=== PATIENT | male | born 1995 | race Caucasian/White ===

== ENCOUNTER 2017-09-10 22:10 | Emergency (ER) | payer SELFPAY ==
[2017-09-10 23:04] VITALS: BMI 25.8
[2017-09-10] MEDS ORDERED: Lactated Ringer's 1,000 ML IV SCH (23:30)
[2017-09-10] MEDS: Albuterol-Ipratrop 3 mg / 0.5 (3 ml) UD IH SCH (23:52)
--- NOTE | 2017-09-11 | ED PDOC ---
Arrival/HPI - General Historian: Patient - History of Present Illness Time/Duration: Prior to Arrival Symptom Onset: Sudden Symptom Course: Unchanged Activities at Onset: Rest Context: Home <Armando Merino - Last Filed: 09/11/17 03:36> <Ck Barrow - Last Filed: 09/11/17 03:49> - General Chief Complaint: Fever Time Seen by Provider: 09/10/17 22:16 - History of Present Illness Narrative History of Present Illness (Text): 09/10/17 23:53 Patient is a 21 M with history of asthma presenting with complaints of fever 103 F, non bloody vomiting, nausea, and general malaise which began this morning. Patient states he did have some RLQ discomfort which began yesterday but he did not pay much attention to it. States he then woke up vomiting this morning and not feeling well. Last meal was [employer] last night. Patient recently came from [place] 3 weeks prior. Denies chills, shortness of breath, diarrhea, constipation, urinary changes, chest pain. PMD: denies Past medical history: asthma Medications: uses ventolin he gets from his emergency department visits Surgical history: denies Allergies: NKDA Social history: 10 cigarettes a day, denies alcohol or drug abuse (Armando Merino) Past Medical History - Provider Review Nursing Documentation Reviewed: Yes - Infectious Disease Hx of Infectious Diseases: None - Tetanus Immunization Tetanus Immunization: Unknown - Past Medical History Past Medical History: No Previous - Cardiac Hx Cardiac Disorders: No - Pulmonary Hx Asthma: Yes - Neurological Hx Neurological Disorder: No - HEENT Hx HEENT Disorder: No - Renal Hx Renal Disorder: No - Endocrine/Metabolic Hx Endocrine Disorders: No - Hematological/Oncological Hx Blood Disorders: No - Integumentary Hx Dermatological Disorder: No - Musculoskeletal/Rheumatological Hx Musculoskeletal Disorders: No - Gastrointestinal Hx Gastrointestinal Disorders: No - Genitourinary/Gynecological Hx Genitourinary Disorders: No - Psychiatric Hx Psychophysiologic Disorder: No Hx Substance Use: No - Past Surgical History Past Surgical History: No Previous - Anesthesia Hx Anesthesia: No Hx Anesthesia Reactions: No - Suicidal Assessment Feels Threatened In Home Enviroment: No <Armando Merino - Last Filed: 09/11/17 03:36> Family/Social History - Physician Review Nursing Documentation Reviewed: Yes Family/Social History: Other Smoking Status: Current Some Days Smoker Hx Alcohol Use: No Hx Substance Use: No Hx Substance Use Treatment: No <Armando Merino - Last Filed: 09/11/17 03:36> Allergies/Home Meds <Armando Merino - Last Filed: 09/11/17 03:36> <Ck Barrow Bobbi - Last Filed: 09/11/17 03:49> Allergies/Adverse Reactions: Allergies No Known Allergies Allergy (Verified 09/10/17 23:01) Review of Systems - Physician Review All systems were reviewed & negative as marked: Yes - Review of Systems Constitutional: Normal Eyes: Normal Respiratory: Normal, Cough. absent: SOB Cardiovascular: absent: Chest Pain, Palpitations Gastrointestinal: Abdominal Pain (right lower quadrant), Nausea, Vomiting. absent: Constipation, Diarrhea Genitourinary Male: absent: Dysuria Neurological: Headache, Dizziness Endocrine: Normal Hemo/Lymphatic: Normal Psychiatric: Normal <Armando Merino - Last Filed: 09/11/17 03:36> Physical Exam Vital Signs Reviewed: Yes Temperature: Afebrile Blood Pressure: Normal Pulse: Regular Respiratory Rate: Normal Appearance: Positive for: Well-Appearing, Non-Toxic, Comfortable Pain Distress: None Mental Status: Positive for: Alert and Oriented X 3 - Systems Exam Head: Present: Atraumatic, Normocephalic Pupils: Present: PERRL Extroacular Muscles: Present: EOMI Conjunctiva: Present: Normal Mouth: Present: Moist Mucous Membranes Respiratory/Chest: Present: Clear to Auscultation. No: Wheezes, Rhonchi Cardiovascular: Present: Regular Rate and Rhythm, Normal S1, S2 Abdomen: Present: Tenderness (left lower quadrant). No: Normal Bowel Sounds Upper Extremity: Present: Normal Inspection. No: Edema Lower Extremity: Present: Normal Inspection. No: Edema Neurological: Present: GCS=15, CN II-XII Intact, Speech Normal Skin: Present: Warm, Normal Color Psychiatric: Present: Alert, Oriented x 3, Normal Insight, Normal Concentration <Armando Merino - Last Filed: 09/11/17 03:36> Vital Signs Temp Pulse Resp BP Pulse Ox 09/11/17 03:21 98.9 F 83 18 101/69 98 09/11/17 01:07 99.6 F 112 H 22 132/68 99 09/10/17 23:12 102.1 F H 108 H 22 135/78 97 Medical Decision Making Re-evaluation Time: 01:20 (abdominal pain resolved) Reassessment Condition: Re-examined, Improved - Lab Interpretations I have reviewed the lab results: Yes Interpretation: No clinic. lab abnormalty - RAD Interpretation Agricultural Research Director: Radiologist <Armando Merino - Last Filed: 09/11/17 03:36> <Ck Barrow - Last Filed: 09/11/17 03:49> ED Course and Treatment: 09/11/17 01:24 Appendicitis vs. Viral colitis vs. Pneumonia CBC, BMP, CT abdomen/pelvis w IV contrast, CXR, Zofran, LR 09/11/17 02:11 CT abdomen/pelvis: 1. Findings consistent with enteritis involving small bowel segments of the lower abdomen and pelvis and primarily involved ileum. 2. Question of minimal nonspecific left colitis. 3. Otherwise negative CT abdomen/pelvis. A normal appendix is seen. CXR- no acute disease process, official read pending Patient states that his abdominal pain has improved. With improvement of symptoms and findings on CT abdomen, will discharge patient with motrin and zofran, and instruct to continue with supportive care (Armando Merino) Patient Seen With Resident: In agreement with resident note, which includes further HPI details. Patient was seen and evaluated with resident, came up with plan and treatment together. 21 year old male presents complaining of fever of 103F associated with vomiting , nausea, generalize malaise that began this morning. Plan: -- Abdmmen & Pelvis CT -- CXR Two views -- Tylenol, IV Fluids, Zofran Inj -- Blood Culture -- Urinalysis Patient was hydrated well in the ED. He was able to tolerate PO fluids. CXR was negative for PNA. Abdominal CT showed enteritis. No diarrhea. Will advise supportive care with motrin prn fever and zofran prn nausea. If symptoms worsen then patient should return to the ED. Patient should also f/u with PMD in 1- 2days. (Ck Barrow) - Lab Interpretations Lab Results: 09/10/17 23:50 09/10/17 23:50 Lab Results 09/10/17 23:50: Sodium 139, Potassium 4.1, Chloride 102, Carbon Dioxide 24, Anion Gap 17, BUN 10, Creatinine 0.9, Est GFR ( Amer) > 60, Est GFR (Non- Af Amer) > 60, Random Glucose 97, Calcium 9.2, Total Bilirubin 0.6, AST 38, ALT 72 H, Alkaline Phosphatase 85, Total Protein 8.2, Albumin 4.6, Globulin 3.5, Albumin/Globulin Ratio 1.3 09/10/17 23:50: WBC 7.8 D, RBC 5.49, Hgb 17.1, Hct 48.0, MCV 87.4, MCH 31.1, MCHC 35.6, RDW 12.8, Plt Count 166, MPV 10.2, Gran % 88.9 H, Lymph % (Auto) 6.1 L, [place] % (Auto) 4.6, Eos % (Auto) 0.3 L, Baso % (Auto) 0.1, Gran # 6.94 H, Lymph # (Auto) 0.5 L, [place] # (Auto) 0.4, Eos # (Auto) 0.0, Baso # (Auto) 0.01 - RAD Interpretation Radiology Orders: 09/10/17 23:28 ABDOMEN & PELVIS [ABD & PELVIS IV CONTRAST ONLY] [CT] Stat 09/11/17 01:10 CHEST TWO VIEWS (PA/LAT) [RAD] Stat - Medication Orders Current Medication Orders: Discontinued Medications Acetaminophen (Tylenol 325mg Tab) 650 mg PO STAT STA Stop: 09/10/17 23:48 Last Admin: 09/11/17 00:36 Dose: 650 mg MAR Pain/Vitals Document 09/11/17 00:36 POLY (Rec: 09/11/17 00:36 POL[id number] Pain Reassessment Is This A Pain ReAssessment? No Sleep Is patient sleeping during reassessment? No Albuterol/Ipratropium (Duoneb 3 Mg/0.5 Mg (3 Ml) Ud) 3 ml IH Q15M [facility] Stop: 09/11/17 00:01 Last Admin: 09/11/17 00:16 Dose: 3 ml Lactated Ringer's (Lactated Ringer's) 1,000 mls @ 125 mls/hr IV .Q8H [facility] Last Admin: 09/10/17 23:52 Dose: 125 mls/hr eMAR Start Stop Document 09/10/17 23:52 POLY (Rec: 09/10/17 23:53 [id number] Intravenous Solution Start Date 09/10/17 Start Time 23:53 End Date 09/10/17 Ondansetron HCl (Zofran Inj) 4 mg IVP STAT STA Stop: 09/10/17 23:28 Last Admin: 09/10/17 23:53 Dose: 4 mg IVP Administration Document 09/10/17 23:53 POLY (Rec: 09/10/17 23:53 [id number] Charges for Administration # of IVP Administrations 1 <Armando Merino - Last Filed: 09/11/17 03:36> - Scribe Statement The provider has reviewed the documentation as recorded by the Scribe <Ck Barrow - Last Filed: 09/11/17 03:49> - Scribe Statement Jhony Arreaga Provider Scribe Attestation: All medical record entries made by the Scribe were at my direction and personally dictated by me. I have reviewed the chart and agree that the record accurately reflects my personal performance of the history, physical exam, medical decision making, and the department course for this patient. I have also personally directed, reviewed, and agree with the discharge instructions and disposition. (Ck Barrow) Disposition/Present on Arrival - Present on Arrival Any Indicators Present on Arrival: No History of DVT/PE: No History of Uncontrolled Diabetes: No Urinary Catheter: No History of Decub. Ulcer: No History Surgical Site Infection Following: None - Disposition Have Diagnosis and Disposition been Completed?: Yes Disposition Time: 02:41 Patient Plan: Discharge <Armando Merino - Last Filed: 09/11/17 03:36> <Ck Barrow - Last Filed: 09/11/17 03:49> - Disposition Diagnosis: Enteritis Disposition: HOME/ ROUTINE Condition: GOOD Discharge Instructions (ExitCare): Viral Gastroenteritis, Adult (DC) Additional Instructions: Mr. Nunez, thank you for letting us take care of you today. Your provider was Dr. Barrow. The emergency medical care you received today was directed at your acute symptoms. If you were prescribed any medication, please fill it and take as directed. It may take several days for your symptoms to resolve. Return to the Emergency Department if your symptoms worsen, do not improve, or if you have any other problems. Please contact your doctor or call one of the physicians/clinics you have been referred to that are listed on the Patient Visit Information form that is included in your discharge packet. Bring any paperwork you were given at discharge with you along with any medications you are taking to your follow up visit. Our treatment cannot replace ongoing medical care by a primary care provider (PCP) outside of the emergency department. Thank you for allowing the [facility] team to be part of your care today. Please follow up with Dr. Agustin as discussed for further follow up regarding this Emergency department visit. If you had an X-Ray or CT scan: A Radiologist will review the ED reading if any change in treatment is needed we will contact you. If you had a blood, urine, or wound culture: It will take several days for the results, if any change in treatment is needed we will contact you. If you had an STI test: It will take 48 hours for the results. Please call after 1 week if you have not heard back. Prescriptions: Ibuprofen [Motrin] 600 mg PO Q6 #28 tab Ondansetron HCl [Zofran] 4 mg PO Q6 #20 tablet Referrals: HARRIETT SEVILLA [Primary Care Provider] - Follow up with primary Brittni Agustin MD [Staff Provider] - Follow up with primary Forms: [employer] ([place]ian)
[2017-09-11] MEDS: Albuterol-Ipratrop 3 mg / 0.5 (3 ml) UD IH SCH (00:16)
[2017-09-11 00:17] LABS: BASO # 0.01 K/mm3 (0.0-2.0); BASO % 0.1 % (0.0-3.0); EOS % 0.3 % (1.5-5.0); GRAN # 6.94 (1.4-6.5); GRAN % 88.9 % (50.0-68.0); HEMOGLOBIN 17.1 g/dL (14.0-18.0); LYMPH # 0.5 (1.2-3.4); LYMPH % 6.1 % (22.0-35.0); MEAN CELL VOLUME 87.4 fl (80.0-105.0); MEAN CORPUSCULAR HEMOGLOBIN 31.1 pg (25.0-35.0); MEAN CORPUSCULAR HGB CONC 35.6 g/dl (31.0-37.0); MEAN PLATELET VOLUME 10.2 fl (7.0-11.0); MONO # 0.4 (0.1-0.6); MONO % 4.6 % (1.0-6.0); RBC 5.49 10^6/uL (3.5-6.1); RED CELL DISTRIBUTION WIDTH 12.8 % (11.5-14.5)
[2017-09-11 00:29] LABS: ALB/GLOB RATIO 1.3 (1.1-1.8); ALBUMIN 4.6 g/dL (3.0-4.8); ALT/SGPT 72 U/L (7-56); AST/SGOT 38 U/L (17-59); BLOOD UREA NITROGEN 10 mg/dL (7-21); CALCIUM 9.2 mg/dL (8.4-10.5); GFR AFRICAN-AMERICAN > 60; GFR NON-AFRICAN AMERICAN > 60
[2017-09-11 00:31] LABS: WHITE BLOOD COUNT 7.8 10^3/ul (4.5-11.0)
[2017-09-11] MEDS ORDERED: Iohexol 350 MG/100 ML VIAL ONE (01:08)
[2017-09-11 03:23] VITALS: BP 101/69; PULSE 83; RESP 18; TEMP 98.9; O2SAT 98
--- NOTE | 2017-09-11 08:37 | CT ---
PROCEDURE: CT Abdomen and Pelvis with contrast HISTORY: Mcburney's point, abdominal pain, vomiting COMPARISON: None. TECHNIQUE: Contrast dose: 100 mL of Omnipaque 350 Radiation dose: Total exam DLP = 569 mGy-cm. This CT exam was performed using one or more of the following dose reduction techniques: Automated exposure control, adjustment of the mA and/or kV according to patient size, and/or use of iterative reconstruction technique. FINDINGS: LOWER THORAX: Unremarkable. LIVER: Unremarkable. No gross lesion or ductal dilatation. GALLBLADDER AND BILE DUCTS: Unremarkable. PANCREAS: Unremarkable. No gross lesion or ductal dilatation. SPLEEN: Unremarkable. ADRENALS: Unremarkable. No mass. KIDNEYS AND URETERS: Unremarkable. No hydronephrosis. No solid mass. VASCULATURE: Unremarkable. No aortic aneurysm. BOWEL: No bowel obstruction. Distal small bowel nondistended. The internal density here may reflect infolding of mucosal enhancement with a thin sub mucosal trace edema and/or induration. No abscess or gross fistula seen. The rectosigmoid colon shows nondistention and distally possible stratification an equivocal slight pericolonic induration. No gross mass seen APPENDIX: Normal appendix. PERITONEUM: Unremarkable. No free fluid. No free air. LYMPH NODES: Few shotty retroperitoneal jose densities. No enlarged lymph nodes. BLADDER: Unremarkable. REPRODUCTIVE: Unremarkable. BONES: No acute fracture. OTHER FINDINGS: None. IMPRESSION: Enteritis -terminal ileum most notably affected -as above. Possible trace rectosigmoid colitis. . No obstruction, abscess or free air. Unremarkable appearing appendix Concordant results (preliminary interpretation) provided by [facility].
--- NOTE | 2017-09-11 09:50 | RAD ---
HISTORY: cough and congestion COMPARISON: 01/24/2016 TECHNIQUE: Chest PA and lateral FINDINGS: LUNGS: No active pulmonary disease. PLEURA: No significant pleural effusion identified. No pneumothorax apparent. CARDIOVASCULAR: Normal. OSSEOUS STRUCTURES: No significant abnormalities. VISUALIZED UPPER ABDOMEN: Normal. OTHER FINDINGS: None. IMPRESSION: No active disease. No interval pathology noted
== END 2017-09-11 03:21 | disposition home or self-care (01) ==
LOC: ED 22:10
DX: K52.9 Noninfective gastroenteritis and colitis, unspecified (principal); F17.210 Nicotine dependence, cigarettes, uncomplicated
CPT/HCPCS: 71046; 74177; 80053; 85025; 87040; 96374; 99284; J2405; J7120; Q9967